=== PATIENT | male | born 1955 | race Caucasian/White ===

== ENCOUNTER 2023-04-13 17:26 | Emergency (ER) | payer OTHER, SELFPAY ==
[2023-04-13 17:29] VITALS: BP 169/91
--- NOTE | 2023-04-13 17:45 | ED.GENMED ---
History of Present Illness
General
Chief Complaint: Head Injury
Source: patient and spouse
Exam Limitations: none
Time Seen by Provider: 04/13/23 17:34
Nursing documentation reviewed up to this point in time: agreed with
Travel History
Have you had any contact with someone who has COVID-19?: No
Do you have any symptoms of coronavirus? Fever > 100 degrees, chills, cough, shortness of breath, sore throat, loss of taste or smell, muscle aches, or headache?: No
History of Present Illness
History of Present Illness:
67-year-old male with a past medical history as documented who presents to the emergency department after a fall. Patient reports that he was walking outside to get the mail when he was returning to the house he caught his foot on the driveway and
fell forward onto his face. He says he did not pass out. Sustained laceration to the bridge of the nose and has had pain and swelling in that area since the fall. He also says that he struck his right hand on the ground and has some pain at the
base of his right thumb. He denies any other serious injuries. He denies any neck pain, back pain, chest pain abdominal pain. No pain in his lower extremities and has been able to bear weight and ambulate since the fall. He denies any nausea or
vomiting. He is on aspirin but no other blood thinners. He says his tetanus shot is up-to-date.
Past History
Past History
ED Past Medical History: CAD, COPD, GERD, HTN, Hypercholesterolemia, NIDDM, [place], Seizures and Other (HIV, Parkinson's)
ED Past Surgical History: Appendectomy, Brain (Deep brain stimulator) and Cardiac (PTCA with stent)
Social History
Tobacco: Vaping
Alcohol: None
Drug: None
Personal:
Living: with family
Employment: Retired
Family History
Family History: CAD (brother in 50s)
Review of Systems
Review of Systems
All Other Systems: ROS reviewed and negative except as documented in HPI and ROS
EENT: Reports other (Nose pain and swelling); Denies mouth pain
Respiratory: Denies trouble breathing
Cardiac: Denies chest pain
ABD/GI: Denies abdominal pain, nausea or vomiting
: Denies flank pain
Musculoskeletal: Denies neck pain or back pain
Skin: Reports other (Laceration bridge of the nose)
Neurological: Reports headache (Frontal headache/facial pain); Denies dizzy, weakness or numbness
Phy Exam
Physical Exam
Physical Exam:
General: Awake, alert, not in acute distress
Head: Normocephalic, patient has minor abrasion to the middle of his forehead; he has laceration to the bridge of the nose approximately 1.5 cm vertical with some swelling to the bridge of the nose
Nose: No septal hematoma; laceration and swelling to the bridge of the nose as above
Eyes: Conjunctiva normal
Throat: Airway intact, handling secretions
Neck: Trachea midline, no tenderness in the cervical spine
Back: No signs of trauma to the back or flank and no tenderness in the thoracic or lumbar spine, no posterior rib tenderness
Lungs: Clear to auscultation bilaterally, no wheezing, rales, rhonchi
Heart: Regular rate and rhythm, no murmurs, gallops, or rubs; no chest wall tender
Abd: Soft, non distended, nontender
Neuro: Patient has intention tremor, shuffling gait; no focal weakness or numbness noted in the extremities
Skin: Laceration and abrasions as above; he also is a minor abrasion to the thenar eminence of the right hand
Extremities: Patient has minor abrasion to the right thenar eminence; he has some tenderness over the thenar eminence but no significant pain with manipulation of the thumb through full active range of motion; he is able to make a fist and has good
range of motion on apposition of the thumb; he has no tenderness of the right wrist, elbow, shoulder; rest of extremities are atraumatic and he moves them all through full comfortable range of motion; his extremities are warm and well-perfused
Scores
Heart Failure Risk
Heart Failure Risk Score: Not Applicable
Heart Score for Chest Pain Patients
STEMI patient?: Not applicable
Withdrawal Assessment of Alcohol
Withdrawal Assessment Completed?: Not applicable
Course
Orders/Labs/Results
Orders:
Orders
04/13/23 17:44
CT Cervical Spine W/o Iv Contr Urgent
Comment:
Reason For Exam: fall with frontal head trauma
CT Facial Bones W/o Iv Contras Urgent
Comment:
Reason For Exam: fall with frontal head trauma
CT Head W/o Iv Contrast Urgent
Comment:
Reason For Exam: fall with frontal head trauma
Acetaminophen [Tylenol] 650 mg PO NOW STA
CR Hand - Right Min 3 Views Urgent
Comment:
Reason For Exam: pain 1st MCP joint s/p fall
Vital Signs
Initial and Last Documented VS:
Initial Vital Signs
Temp Pulse Resp BP Pulse Ox
36.4 C 68 16 169/91 98
04/13/23 17:29 04/13/23 17:29 04/13/23 17:29 04/13/23 17:29 04/13/23 17:29
Last Documented Vital Signs
Temp Pulse Resp BP Pulse Ox
36.4 C 68 16 169/91 98
04/13/23 17:29 04/13/23 17:29 04/13/23 17:29 04/13/23 17:29 04/13/23 17:29
Procedures
Laceration Closure
Nose:
Status of Wound: clean
Size of Wound in cm: 1.5
Description of Wound Edges: sharp
Preparation: cleaned with saline
Anesthesia: 1% Lidocaine
Revision/Debridement: routine- no revision
Type of Closure: single layer closure
Skin Closure Material: 6-0 nylon
Number of sutures: 5
MDM/Problems Addressed
Differential Diagnosis Includes:
Must rule out intracranial hemorrhage, cervical spine injury although low suspicion clinically; concern for nasal fracture
MDM/Problems Addressed:
67-year-old male with history as above notable for Parkinson's disease presents after mechanical fall in his driveway onto his face. He injured his nose primarily also has some very mild pain at the base of the right thumb. He is hypertensive but
has otherwise normal vitals. As above. Check CT head and cervical spine, CT of the facial bones. Will check x-ray of the right hand. Patient says his tetanus is up-to-date. Will need to irrigate and repair laceration of the nose. Will give
some Tylenol for his nasal pain/headache. Reassess after the above.
CT head and cervical spine negative for any acute pathology. CT of the facial bones shows nasal fracture. X-ray of the hand reviewed by me no acute pathology. Irrigated and repaired laceration as documented procedure note. Will start on
prophylactic antibiotic given nasal fracture and laceration. Will have him follow-up with his primary doctor as an outpatient. He feels comfortable with this. Spoke about return precautions all questions answered.
Chronic conditions affecting care:
Parkinson's leading to frequent falls
Acute Exacerbation and/or Progression of Chronic Illness:
Acutely hypertensive�no signs or symptoms of hypertensive emergency no indication for emergent antihypertensive therapy at present
Acute Exacerbation and/or Progression of Chronic Illness: HTN
*Radiology
Radiology exam reviewed: preliminary read by ED provider and radiology read reviewed
*Pulse Oximetry
Patient hypoxic: no
*Critical Care Note
Total Time (30-74mins, 75-104mins- exclusive of procedures): Not Applicable
Data Reviewed
Source: patient and spouse
ED Attending Note
-
Portions of this chart may have been created with voice recognition software.� Occasional wrong word or��sound alike� substitutions may have occurred due to the inherent limitations of voice recognition software.
Discharge Plan
Departure
Patient Disposition: Home (Routine Discharge)
Date of Disposition: 04/13/23
Time of Disposition: 18:52
Patient with high blood pressure during this ER visit?: Yes
Discharge Problem:
Laceration of nose, Fracture, nasal
Instructions: Laceration Repair With Stitches (DC), Nose Fracture (DC)
Prescriptions:
New
clindamycin HCl 150 mg capsule
450 mg PO TID 5 Days Qty: 45 0RF
No Action
metoprolol succinate 100 MG tablet extended release 24 hr
100 mg PO DAILY
aspirin 81 MG tablet,delayed release (DR/EC)
81 mg PO HS
entacapone 200 MG tablet
200 mg PO BID
esomeprazole magnesium [Nexium] 40 MG capsule,delayed release(DR/EC)
40 mg PO DAILY
carbidopa-levodopa 1 TABLET tablet
1 tab PO TID
rosuvastatin [Crestor] 40 MG tablet
40 mg PO HS
pregabalin 100 MG capsule
200 mg PO BID
tamsulosin 0.4 MG capsule
0.4 mg PO HS
canagliflozin-metformin [Invokamet] 1 EACH tablet
1 ea PO DAILY
rxxfhfx-aqm-vecbh-tenof alafen [Genvoya] 1 TABLET tablet
1 ea PO DAILY
losartan 50 MG tablet
50 mg PO DAILY
potassium chloride 10 MEQ capsule, extended release
10 meq PO DAILY
chlorthalidone 25 MG tablet
25 mg PO DAILY
escitalopram oxalate 10 MG tablet
10 mg PO DAILY
hydrochlorothiazide 12.5 MG tablet
12.5 mg PO DAILY
multivitamin with folic acid [Tab-A-Lyly] 1 TABLET tablet
1 tab PO DAILY
nicotine 14 MG patch 24 hour
14 mg transdermal DAILY Qty: 30 0RF
Referrals:
Oanh Askew CRNP [Family Provider] - Follow up in 5-7 days
Activity Restrictions/Additional Instructions:
You must have your stitches removed in 5-7 days. You can either follow-up with your primary care physician, return here to the emergency room, or go to urgent care to have your stitches removed.
Thank you for visiting the Emergency Department at [facility].
1. Please schedule a follow up appointment as directed. Call first thing tomorrow morning to make an appointment.
2. If indicated, please take your medications as instructed and indicated on discharge paperwork.
3. If any of your symptoms do not improve, or persist, or become more severe within 6-12 hours, please return to the emergency department for further care.
4. Please return to the emergency department if you develop a headache, neck pain/stiffness, fever greater than 100.4F, chest pain, shortness of breath, persistent nausea, vomiting, slurred speech, difficulty walking, numbness/tingling, weakness,
signs of infection or any other symptoms that are worrisome to you.
Please call [phone] if you have any questions.
Interventions
Interventions:
*Risk Screen - Suicide Last Done: 04/13/23 17:29
*General Assessment Last Done: 04/13/23 17:29
*Neglect/Abuse Screening Last Done: 04/13/23 17:29
ED- Fall Risk Assessment Last Done: 04/13/23 18:04
*Nursing Disposition Last Done: 04/13/23 18:57
ED- Neurological Assessment Last Done: 04/13/23 18:04
ED-Skin Assessment Last Done: 04/13/23 18:04
Discharge Date and Time
Discharge Date/Time: 04/13/23 18:58
[2023-04-13] MEDS: TYLENOL 650 MG PO (17:57)
== END 2023-04-13 18:58 | disposition home or self-care (01) ==
LOC: EMR 17:26
PROVIDERS: EMERGENCY PHYSICIAN Emergency Medicine; FAMILY PHYSICIAN Nurse Practitioner Family
DX: S01.21XA Laceration without foreign body of nose, initial encounter (principal); S02.2XXA Fracture of nasal bones, initial encounter for closed fracture; W19.XXXA Unspecified fall, initial encounter; Y93.01 Activity, walking, marching and hiking; I25.10 Atherosclerotic heart disease of native coronary artery without angina pectoris; J44.9 Chronic obstructive pulmonary disease, unspecified; K21.9 Gastro-esophageal reflux disease without esophagitis; I10 Essential (primary) hypertension; E78.00 Pure hypercholesterolemia, unspecified; E11.9 Type 2 diabetes mellitus without complications; I25.2 Old myocardial infarction; G20.A1 Parkinson's disease without dyskinesia, without mention of fluctuations; G40.909 Epilepsy, unspecified, not intractable, without status epilepticus; Z21 Asymptomatic human immunodeficiency virus [HIV] infection status; F17.290 Nicotine dependence, other tobacco product, uncomplicated; Z79.82 Long term (current) use of aspirin; Z82.49 Family history of ischemic heart disease and other diseases of the circulatory system; Z90.49 Acquired absence of other specified parts of digestive tract; Z95.5 Presence of coronary angioplasty implant and graft
CPT/HCPCS: 99284; 12011; 70450; 70486; 72125; 73130

== ENCOUNTER → 2023-08-30 09:40 | Outpatient (REF) | payer OTHER, SELFPAY | LOC: RCS 09:40 | PROVIDERS: ATTENDING PHYSICIAN Internal Medicine Cardiovascular Disease; FAMILY PHYSICIAN Nurse Practitioner Family | DX: I25.10 Atherosclerotic heart disease of native coronary artery without angina pectoris (principal); I10 Essential (primary) hypertension | CPT/HCPCS: 93306 ==

== ENCOUNTER → 2023-09-09 08:50 | Outpatient (REF) | payer OTHER, SELFPAY | LOC: WDC 08:50 | PROVIDERS: ATTENDING PHYSICIAN Nurse Practitioner Family | DX: N64.4 Mastodynia (principal) | CPT/HCPCS: 76642; 77062; 77066 ==

== ENCOUNTER → 2024-04-02 07:24 | Outpatient (REF) | payer OTHER, SELFPAY | LOC: HWRCS 07:24 | PROVIDERS: ATTENDING PHYSICIAN Internal Medicine Cardiovascular Disease; FAMILY PHYSICIAN Nurse Practitioner Family | DX: I25.10 Atherosclerotic heart disease of native coronary artery without angina pectoris (principal) | CPT/HCPCS: 78452; 93017; A9500; J2785 ==

== ENCOUNTER → 2024-05-12 08:44 | Outpatient (REF) | payer OTHER, SELFPAY | LOC: HWRAD 08:44 | PROVIDERS: ATTENDING PHYSICIAN Nurse Practitioner Family | DX: M25.562 Pain in left knee (principal) | CPT/HCPCS: 73564 ==

== ENCOUNTER → 2024-07-07 08:52 | Outpatient (REF) | payer OTHER, SELFPAY | LOC: WDC 08:52 | PROVIDERS: ATTENDING PHYSICIAN Physician Assistant | DX: R92.8 Other abnormal and inconclusive findings on diagnostic imaging of breast (principal) | CPT/HCPCS: 76642; 77061; 77065 ==

== ENCOUNTER → 2024-07-23 08:05 | Outpatient (REF) | payer OTHER, SELFPAY | LOC: HWRAD 08:05 | PROVIDERS: ATTENDING PHYSICIAN Internal Medicine Infectious Disease; FAMILY PHYSICIAN Nurse Practitioner Family | DX: B20 Human immunodeficiency virus [HIV] disease (principal); E11.9 Type 2 diabetes mellitus without complications; Z79.4 Long term (current) use of insulin; D69.6 Thrombocytopenia, unspecified; I10 Essential (primary) hypertension; E87.0 Hyperosmolality and hypernatremia | CPT/HCPCS: 76700 ==

== ENCOUNTER 2024-09-19 20:08 | Emergency (ER) | payer OTHER, SELFPAY ==
[2024-09-19 20:10] VITALS: BP 165/80
[2024-09-19 20:11] VITALS: BP 165/80
[2024-09-19 20:19] VITALS: BMI 28.9
[2024-09-19 20:22] LABS: Hematocrit 42.0 % (39.0-52.0); Hemoglobin 14.3 g/dL (13.0-18.0); Mean Corp Hgb Conc. 34.0 g/dL (33.0-37.0); Mean Corpuscular Volume 88.6 fL (80.0-94.0); Nucleated Red Blood Cells % 0 % (-); Platelet Count 136 10^3/uL (130-400); Red Cell Dist. Width 14.2 % (11.5-14.5)
[2024-09-19 20:37] LABS: ALT (SGPT) 15 U/L (0-50); AST (SGOT) 20 U/L (17-59); Albumin 4.1 g/dl (3.5-5.0); Alkaline Phosphatase 78 U/L (38-126); Blood Urea Nitrogen 17 mg/dl (9-20); Calcium 8.7 mg/dl (8.4-10.2); Carbon Dioxide 31 mmol/L (22-30); Chloride 107 mmol/L (98-107); Estimated Creatinine Clearance 82 ml/min; Glucose 162 mg/dl (70-99); Potassium 3.7 mmol/L (3.5-5.1); Sodium 142 mmol/L (135-145); Total Protein 6.8 g/dl (6.3-8.2); eGFR > 60.00
[2024-09-19 20:43] LABS: Troponin I < 0.012 ng/ml
--- NOTE | 2024-09-19 20:48 | ED.GENMED ---
History of Present Illness
General
Chief Complaint: Chest Pain
Source: patient
Exam Limitations: none
Time Seen by Provider: 09/19/24 20:21
Nursing documentation reviewed up to this point in time: agreed with
History of Present Illness
History of Present Illness:
69-year-old male with past medical history of Parkinson's previous seizures TBI in the past, asthma presenting to the emergency department today with concerns of midsternal chest pain described as pressure without significant radiation no associated
shortness of breath or diaphoresis, nausea. Took aspirin at home within a half an hour of onset now has complete resolution of chest pain. No recent illness.
Past History
Past History
ED Past Medical History: CAD, COPD, GERD, HTN, Hypercholesterolemia, NIDDM, [place], Seizures and Other (HIV, Parkinson's)
ED Past Surgical History: Appendectomy, Brain (Deep brain stimulator) and Cardiac (PTCA with stent)
Social History
Tobacco: Vaping
Alcohol: None
Drug: None
Personal:
Living: with family
Employment: Retired
Family History
Family History: CAD (brother in 50s)
Review of Systems
Review of Systems
Allergies reviewed?: Yes
All Other Systems: ROS reviewed and negative except as documented in HPI and ROS
Phy Exam
Physical Exam
Physical Exam:
GENERAL: Alert , in no apparent distress
EYE: pupils equal and reactive
NECK: Supple, no significant adenopathy.
ENT: o/p clr, mmm.
CARDIAC: Regular rate and rhythm .
LUNGS: Clear breath sounds bilaterally, no acute respiratory distress, no wheezes/rales/rhonchi
ABDOMEN: Soft, without focal tenderness, no r/g, no cvat
NEUROLOGICAL: Alert and oriented, no focal neuro deficits
SKIN: Warm and dry, skin intact.
MUSCULOSKELETAL: No edema, well perfused.
PSYCH: Normal and appropriate interaction.
Scores
Heart Score for Chest Pain Patients
STEMI patient?: No
History: Slightly or Non-Suspicious
ECG: Nonspecific Repolarization
Age: >/= 65 years
Risk Factors: >/= 3 Risk Factors or History of CAD
Troponin: </= Normal Limit
Heart Score for Chest Pain Patients: 5
Heart Score Risk: 20.3% MACE over next 6 weeks
Course
Orders/Labs/Results
Orders:
Orders
09/19/24 20:09
Electrocardiogram (*1) Urgent
Reason for Study: Chest Pain
Cardiac Monitoring- Treatment ONCE
EKG- Treatment ONCE
09/19/24 20:13
Complete Blood Count/With Diff Urgent
Comprehensive Metabolic Panel Urgent
Troponin I Urgent
09/19/24 20:28
CXR2 [CR Chest - 2 Views ] Urgent
Comment:
Reason For Exam: cp
09/19/24 20:42
Venous Doppler Lwr Ext Rt [US Periph Venous LOWER Ext RT] Urgent
Comment:
Reason For Exam: right leg swelling
09/19/24 23:15
Electrocardiogram (*1) Urgent
Reason for Study: Chest Pain
09/19/24 23:18
Troponin I Urgent
Abnormal Lab Results
09/19/24
20:13
WBC 4.7 L 10^3/uL
(4.8-10.8)
MPV 10.5 H fL
(7.4-10.4)
Monocytes % 9.9 H %
(1.7-9.3)
Carbon Dioxide 31 H mmol/L
(22-30)
Glucose 162 H mg/dl
(70-99)
09/19/24 20:13
09/19/24 20:13
Vital Signs
Initial and Last Documented VS:
Initial Vital Signs
BP
165/80
09/19/24 20:10
Last Documented Vital Signs
Temp Pulse Resp BP Pulse Ox
98.3 F 68 19 165/83 97
09/19/24 20:11 09/20/24 00:00 09/19/24 20:30 09/19/24 23:00 09/20/24 00:00
MDM/Problems Addressed
MDM/Problems Addressed:
69-year-old male presenting to the emergency department today with concerns of a midsternal chest pain at home while watching TV he took aspirin now full relief of symptoms. Occurred roughly 1 hour prior to assessment. Vital signs on arrival
showing slight hypertension otherwise vital signs are normal. Labs otherwise unremarkable. Patient asymptomatic throughout ER stay 2 negative troponins to normal EKG stable for close outpatient follow-up. Return precautions given.
*Pulse Oximetry
SaO2: 97
Oxygen Mode of Delivery: Room air
Patient hypoxic: no (97)
*Critical Care Note
Total Time (30-74mins, 75-104mins- exclusive of procedures): Not Applicable
ED Attending Note
-
Portions of this chart may have been created with voice recognition software.� Occasional wrong word or��sound alike� substitutions may have occurred due to the inherent limitations of voice recognition software.
Discharge Plan
Departure
Patient Disposition: Home (Routine Discharge)
Date of Disposition: 09/20/24
Time of Disposition: 00:05
Patient with high blood pressure during this ER visit?: No
Condition: Good
Covid-19: Not Applicable
Discharge Problem:
Chest pain
Instructions: Chest Pain DCA Follow Up
Prescriptions:
No Action
metoprolol succinate 100 MG tablet extended release 24 hr
100 mg PO DAILY
aspirin 81 MG tablet,delayed release (DR/EC)
81 mg PO HS
entacapone 200 MG tablet
200 mg PO BID
esomeprazole magnesium [Nexium] 40 MG capsule,delayed release(DR/EC)
40 mg PO DAILY
carbidopa-levodopa 1 TABLET tablet
1 tab PO TID
rosuvastatin [Crestor] 40 MG tablet
40 mg PO HS
pregabalin 100 MG capsule
200 mg PO BID
tamsulosin 0.4 MG capsule
0.4 mg PO HS
canagliflozin-metformin [Invokamet] 1 EACH tablet
1 ea PO DAILY
uzanhoi-vpt-aojhe-tenof alafen [Genvoya] 1 TABLET tablet
1 ea PO DAILY
losartan 50 MG tablet
50 mg PO DAILY
potassium chloride 10 MEQ capsule, extended release
10 meq PO DAILY
chlorthalidone 25 MG tablet
25 mg PO DAILY
escitalopram oxalate 10 MG tablet
10 mg PO DAILY
hydrochlorothiazide 12.5 MG tablet
12.5 mg PO DAILY
multivitamin with folic acid [Tab-A-Lyly] 1 TABLET tablet
1 tab PO DAILY
nicotine 14 MG patch 24 hour
14 mg transdermal DAILY Qty: 30 0RF
clindamycin HCl 150 mg capsule
450 mg PO TID 5 Days Qty: 45 0RF
Referrals:
Oanh Askew CRNP [Family Provider, Family Practice]
Activity Restrictions/Additional Instructions:
You came to the emergency department today with concerns of chest pain. Here you had a reassuring assessment. 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 Return for any worsening, new or concerning symptoms.
Interventions
Interventions:
*Risk Screen - Suicide Last Done: 09/19/24 20:16
*General Assessment Last Done: 09/19/24 20:16
*Neglect/Abuse Screening Last Done: 09/19/24 20:16
*ED- Fall Risk Assessment Last Done: 09/19/24 20:16
*ED COVID-19 Vaccine History Last Done: 09/19/24 20:16
ED- Cardiac Assessment Last Done: 09/19/24 20:24
Discharge Date and Time
Print Language: YI
[2024-09-19 21:19] VITALS: BP 157/67
[2024-09-19 22:41] VITALS: BP 155/83
[2024-09-19 23:00] VITALS: BP 165/83
[2024-09-19 23:46] LABS: Troponin I < 0.012 ng/ml
[2024-09-20 00:01] VITALS: BP 172/89
== END 2024-09-20 00:47 | disposition home or self-care (01) ==
LOC: EMR 20:08
PROVIDERS: Physician Assistant; EMERGENCY PHYSICIAN Emergency Medicine; FAMILY PHYSICIAN Nurse Practitioner Family
DX: R07.89 Other chest pain (principal); E11.9 Type 2 diabetes mellitus without complications; E78.00 Pure hypercholesterolemia, unspecified; I10 Essential (primary) hypertension; I25.10 Atherosclerotic heart disease of native coronary artery without angina pectoris; G20.A1 Parkinson's disease without dyskinesia, without mention of fluctuations; J44.89 Other specified chronic obstructive pulmonary disease; F17.290 Nicotine dependence, other tobacco product, uncomplicated; Z87.820 Personal history of traumatic brain injury; Z90.49 Acquired absence of other specified parts of digestive tract; Z95.5 Presence of coronary angioplasty implant and graft
CPT/HCPCS: 99285; 71046; 80053; 84484; 85025; 93005; 93971

== ENCOUNTER 2024-10-19 23:28 | Inpatient (IN) | payer OTHER, SELFPAY ==
[2024-10-19] VITALS (10 sets, daily range): BP systolic 78–118; BP diastolic 47–61; BMI 28.8
--- NOTE | 2024-10-19 18:06 | ED.GENMED ---
History of Present Illness
General
Chief Complaint: Breathing Problem
Source: patient
Exam Limitations: none
Time Seen by Provider: 10/19/24 17:53
Nursing documentation reviewed up to this point in time: agreed with
History of Present Illness
History of Present Illness:
Patient presents to ED secondary to sudden onset of chest pain along with shortness of breath, shortly prior to arrival. Per paramedics, patient was found to be in respite distress with initial hypoxia in 80s, improved with supplemental oxygen.
Denies back pain. Denies leg pain or swelling. Chest pain described as sharp, left-sided, without radiation, without any alleviating or exacerbating factors. Patient reports feeling lightheaded at onset of symptoms. Patient did not experience
any shortness of breath or chest pain earlier today. In fact, patient was able to see his neurologist in [place] for Parkinson disease. It is when he came back and lay down to take a nap, he felt a chill sensation. Patient was assisted to
outside by his spouse to warm up, when he experienced sudden onset of shortness of breath with chest pain.
Past History
Past History
ED Past Medical History: CAD, COPD, GERD, HTN, Hypercholesterolemia, NIDDM, [place], Seizures and Other (HIV, Parkinson's)
ED Past Surgical History: Appendectomy, Brain (Deep brain stimulator) and Cardiac (PTCA with stent)
Social History
Tobacco: Vaping
Alcohol: None
Drug: None
Personal:
Living: with family
Employment: Retired
Family History
Family History: CAD (brother in 50s)
Review of Systems
Review of Systems
Allergies reviewed?: Yes
All Other Systems: ROS reviewed and negative except as documented in HPI and ROS
Constitutional: Reports no symptoms
EENT: Reports no symptoms
Respiratory: Reports trouble breathing
Cardiac: Reports chest pain
ABD/GI: Reports no symptoms; Denies nausea or vomiting
: Reports bleeding
Musculoskeletal: Reports no symptoms
Skin: Reports no symptoms
Neurological: Reports no symptoms
Phy Exam
Physical Exam
Physical Exam:
Physical Exam
General: mild distress, not acutely ill. afebrile. weak appearing
Head: nc/at. eomi
Neck: supple. no meningeal signs
Heart: s1/s2 regular rate and rhythm
Lungs: no acute respiratory distress. diminished breath sounds bilaterally
Abdomen: normal bowel sounds. not tender.
Neuro: alert and oriented x 3. no focal neurological deficits
Skin: no rash
Psychiatric: well kept. interactive and cooperative
Extremities: no edema. no calf tenderness.
Scores
Heart Failure Risk
Heart Failure Risk Score: Not Applicable
Course
Orders/Labs/Results
Orders:
Orders
10/19/24 04:27
Urinalysis Reflex To Culture Urgent
Date Specimen was Collected: 10/19/24
Time Specimen was Collected: 18:19
Urine Microscopic Reflex Cult Urgent
Urine Culture Urgent
CATHERINE Source: U
Specimen Description:
Date Specimen was Collected: 10/19/24
Time Specimen was Collected: 18:19
10/19/24 18:00
CR Chest Portable - 1 View Urgent
Comment:
Reason For Exam: shortness of breath
Reason Study Needs to be Portable: Patient Unstable
10/19/24 18:02
EKG [Electrocardiogram (*1)] Urgent
Reason for Study: Bradycardia / Tachycardia
EKG- Treatment ONCE
10/19/24 18:04
Complete Blood Count/With Diff Urgent
Comprehensive Metabolic Panel Urgent
Glycohemoglobin (HgbA1c) Urgent
Lactic Acid Urgent
Magnesium Urgent
NT-proBNP Urgent
Troponin I Urgent
Comment: ADD ON
Blood Culture Urgent
CATHERINE Source: Blood/Venous
Specimen Description:
10/19/24 18:05
0.9% Sodium Chloride 250 ml [Nss] 250 ml IV BOLUS
10/19/24 18:07
Add On- LAB Urgent
Tests Added?: troponin
10/19/24 18:32
CT Chest PE Study Urgent
Comment:
Reason For Exam: sob w hypoxia
10/19/24 18:42
COVID-19 Antigen Urgent
Source: Nasal Swab
Blood Culture Urgent
CATHERINE Source: Blood/Venous
Specimen Description:
10/19/24 18:52
Add On- LAB Urgent
Tests Added?: Troponin
10/19/24 19:26
Add On- LAB Urgent
Tests Added?: Hemoglobin A1c
10/19/24 19:59
LevoFLOXacin 500 MG/100 ML [Levaquin] 500 mg in 100 ml IV NOW
10/19/24 22:12
Acetaminophen [Tylenol] 650 mg .ROUTE .STK-MED ONE
10/19/24 22:13
Acetaminophen [Tylenol] 650 mg PO NOW STA
10/19/24 23:07
Admit/Transfer Patient As Directed
Co-Sign Provider:
Level of Care: Inpatient admission
Assign to:: Telemetry
Physician / Group: aaron
Diagnosis: uti
Reason for Telemetry: Arrhythmia
Date to Stop Telemetry: 10/22/24
Time to Stop Telemetry: 11:00
Reason for Hospitalization: uti
Expected length of stay greater than two midnights?: Yes
ELOS- Estimated Length of Stay in days: 2
I certify the patient meets the requirements for IP care: Yes
Code Status As Directed
Resuscitation Status: Do not resuscitate
Reached after discussion with pt or family/Healthcare POA: Yes
DNR Bracelet Application ONCE
PRN Pain Medication Management As Directed
May give lesser potent ordered pain med per pt: Yes
preference::
Protocol:: Medication orders for pain may be administered in a
manner that supports deferring to patient preference
when the pt is:
- Requesting an ordered lesser potent pain medication.
Least to most potent pain medications are defined
as: acetaminophen < NSAID < tramadol < opioids
(morphine, oxycodone, hydromorphone).
- Requesting a lesser dose of the same medication IF
ORDERED.
- Requesting a less intrusive route of administration
if both routes are prescribed by the provider (PO <
IV).
10/20/24 00:00
CefTRIAXone [Rocephin] 1,000 mg IV Q24H
10/20/24 00:10
Dextrose 50%-Water [Dextrose 50% Syringe] 12.5 grams IV [id number] PRN
Glucagon [GlucaGen] 1 mg IM PRN PRN
10/20/24 00:10
Activity As Directed
Activity Level: As Tolerated
Bedside Glucose Monitoring As Directed
Frequency: AC&HS
Additional Instructions:: Change to q6h if pt on TPN, tube feeding or not eating
Bladder Scan As Directed
Follow Bladder Retention/Intermittent Cath Algorithm?: Yes
PRN if no void in __ hours: 6
Frequency: Per Retention Algorithm
If Bladder Scan Result >: 400
then:: Straight cath
Straight Cath As Directed
Frequency: Per Retention Algorithm
Patient may straight cath themselves: Yes
Additional Instructions: straight cath as needed per acute urinary retention algorithm for 24 hrs
Additional Instructions: for bladder scan greater than 400 mL
Vital Signs As Directed
Frequency: Per unit guidelines
DX Deep Vein Thrombosis Video Routine
10/20/24 01:04
Troponin I Q6H
10/20/24 05:34
Complete Blood Count/With Diff IN AM
Comprehensive Metabolic Panel IN AM
10/20/24 07:30
Insulin Aspart Corrective Low [Novolog Flexpen-Low Resistance] See Protocol SC AC
10/20/24 08:00
Aspirin Low Dose EC [Aspir Low (Enteric Coated)] 81 mg PO DAILY
Carbidopa/Levodopa [Sinemet 25-250] 2 tablet PO TID
Escitalopram Oxalate [Lexapro] 20 mg PO DAILY
Ezetimibe [Zetia] 10 mg PO DAILY
Heparin 5,000 units SC Q12
Metoprolol Xl [Toprol Xl] 100 mg PO DAILY
Multivitamin [Theragran] 1 tablet PO DAILY
Pantoprazole [Protonix] 40 mg PO DAILY
Pregabalin [Lyrica] 200 mg PO TID
jbtqjdg-zjm-mzsds-tenof alafen [Genvoya] 1 tablet PO DAILY
10/20/24 12:15
Troponin I Q6H
10/20/24 Dinner
Cholesterol Lowering
At Your Request: Full Participation
Cholesterol Lowering: Sodium, 2 Gram
10/20/24 18:00
Potassium Chloride [KCl] 20 meq PO QPM
10/20/24 18:10
Troponin I Q6H
10/20/24 22:00
Rosuvastatin Calcium [Crestor] 40 mg PO HS
Tamsulosin [Flomax] 0.4 mg PO HS
10/22/24 11:00
DC Protocol for Telemetry ONCE
Abnormal Lab Results
10/19/24 10/19/24
04:27 18:04
RDW 14.8 H %
(11.5-14.5)
Plt Count 116 L 10^3/uL
(130-400)
MPV 11.2 H fL
(7.4-10.4)
Absolute Lymphs (auto) 0.5 L 10^3/uL
(1.2-3.4)
Neutrophils % 87.6 H %
(42.2-75.2)
Lymphocytes % 8.5 L %
(20.5-51.1)
BUN 21 H mg/dl
(9-20)
Glucose 229 H mg/dl
(70-99)
Hemoglobin A1c 7.7 H %
(4.0-5.6)
Ur Occult Blood Reflex 4+ A
(Negative)
Urine Nitrite (Reflex) Positive A
(Negative)
Leukocyte Esterase Rfl 2+ A
(Negative)
Urine RBC >100 A /HPF
(0-2)
Urine WBC (Reflex) >100 A /HPF
(0-5)
Urine Bacteria (Reflex) Many A
(Negative)
Urine Glucose 4+ A
(Negative)
Urine Albumin (Reflex) 4+ A
(Neg - Trace)
10/19/24 18:04
10/19/24 18:04
Vital Signs
Initial and Last Documented VS:
Initial Vital Signs
Temp Pulse Resp BP Pulse Ox
99.7 F 108 16 82/51 95
10/19/24 17:42 10/19/24 17:42 10/19/24 17:42 10/19/24 17:42 10/19/24 17:42
Last Documented Vital Signs
Temp Pulse Resp BP Pulse Ox
97.9 F 74 16 141/73 95
10/20/24 11:31 10/20/24 11:31 10/20/24 11:31 10/20/24 11:31 10/20/24 08:16
MDM/Problems Addressed
MDM/Problems Addressed:
Prehospital, as well as initial pulse ox upon arrival to ED, initially supported with supplemental oxygen, resolved spontaneously over time, raising possibility of infectious etiology causing transient hypoxia with patient's discomfort.
CT PE study ordered.
Patient will be admitted for further evaluation treatment, on IV antibiotics.
*Pulse Oximetry
SaO2: 96
Nasal Cannula flow liters per minute: 6
Patient hypoxic: yes
*EKG
Interpreted by ED Provider?: Yes
EKG Intrepretation Date: 10/19/24
Heart Rate: 104
Rate: tachycardiac
Rhythm: sinus
[place]: left axis deviation
Interval: normal interval
*Critical Care Note
Total Time (30-74mins, 75-104mins- exclusive of procedures): Not Applicable
ED Attending Note
-
Portions of this chart may have been created with voice recognition software.� Occasional wrong word or��sound alike� substitutions may have occurred due to the inherent limitations of voice recognition software.
Discharge Plan
Departure
Patient Disposition: Admit
Date of Disposition: 10/19/24
Time of Disposition: 20:41
Presentation/result/management discussed w/ accepting MD/DO: Hospitalist
Discharge Problem:
Acute UTI
Interventions
Interventions:
*Risk Screen - Suicide Last Done: 10/19/24 17:59
*General Assessment Last Done: 10/19/24 17:59
*Neglect/Abuse Screening Last Done: 10/19/24 17:59
*ED- Fall Risk Assessment Last Done: 10/19/24 17:59
*ED COVID-19 Vaccine History Last Done: 10/19/24 17:59
ED- Cardiac Assessment Last Done: 10/20/24 08:16
ED- Pulmonary Assessment Last Done: 10/20/24 08:16
[2024-10-19 18:16] LABS: Hematocrit 45.0 % (39.0-52.0); Hemoglobin 15.0 g/dL (13.0-18.0); Mean Corp Hgb Conc. 33.3 g/dL (33.0-37.0); Mean Corpuscular Volume 90.0 fL (80.0-94.0); Nucleated Red Blood Cells % 0 % (-); Platelet Count 116 10^3/uL (130-400); Red Cell Dist. Width 14.8 % (11.5-14.5)
[2024-10-19] MEDS: NSS 250 IV (18:24)
[2024-10-19 18:39] LABS: ALT (SGPT) 10 U/L (0-50); AST (SGOT) 38 U/L (17-59); Albumin 4.3 g/dl (3.5-5.0); Alkaline Phosphatase 109 U/L (38-126); Blood Urea Nitrogen 21 mg/dl (9-20); Calcium 8.5 mg/dl (8.4-10.2); Carbon Dioxide 28 mmol/L (22-30); Chloride 107 mmol/L (98-107); Estimated Creatinine Clearance 66 ml/min; Glucose 229 mg/dl (70-99); Magnesium 1.9 mg/dl (1.6-2.3); Potassium 3.8 mmol/L (3.5-5.1); Sodium 143 mmol/L (135-145); Total Protein 6.8 g/dl (6.3-8.2); eGFR > 60.00
[2024-10-19 18:50] LABS: Urine Character Cloudy (Clear)
[2024-10-19 19:04] LABS: COVID-19 Antigen Negative (Negative)
[2024-10-19 19:36] LABS: Urine Red Blood Cell >100 /HPF (0-2); Urine Squamous Cell 0-2 /LPF (Few); Urine White Cell >100 /HPF (0-5)
[2024-10-19 20:02] LABS: Troponin I < 0.012 ng/ml
[2024-10-19] MEDS: LEVAQUIN 100 IV (21:27)
[2024-10-19] MEDS: TYLENOL 650 MG PO (22:14)
--- NOTE | 2024-10-19 23:15 | HPS.HSE ---
Family Physician
-
Family Physician: GHASSAN Coates
Chief Complaint
-
chest pain
History of Present Illness
69-year-old male past medical history of HIV, diabetes, hyperlipidemia, hypertension, anxiety, parkinsonism, seizure disorder, COPD, GERD, BPH and self catheterizes, presenting with sudden onset of chest pain and shortness of breath that started
abruptly shortly prior to arrival. Per paramedics he was found to be in respiratory distress with hypoxia in the 80s which improved with supplemental oxygen. Denies back pain. Chest pain described as pressure without radiation no alleviating
exacerbating factors. Patient did feel lightheaded at the onset of symptoms.
Patient states that he gained 2 to 3 pounds over the past few days. Over the past several months his shoe sizes increased from 9-12 due to increased lower extremity edema.
Patient was feeling fine earlier today. He was able to see his neurologist in [place] for Parkinson's disease. He felt chills when he came back home.
He noticed blood in the urine with burning during self-catheterization today.
He follows with infectious disease doctor in [place] and states that his CD4 counts have been normal without any issue. He takes his HIV medication every day.
He does vape. He denies alcohol. He denies drugs.
Medical History
Past Medical History
Past Medical History: Reports Other (HIV, diabetes, hyperlipidemia, hypertension, anxiety, parkinsonism, seizure disorder, COPD, GERD, BPH and self catheterizes)
Past Surgical History: Reports Other ( Appendectomy, Brain (Deep brain stimulator) and Cardiac (PTCA with stent))
Social History
Tobacco: Vaping
Alcohol: None
Drug: None
Family History
Family History: Not pertinent
Allergies / Home Medications
Allergies reflects when Allergies were last updated in [employer].
Home Medications with original date entered in [employer]
Allergy/Medication List:
Allergies
Allergy/AdvReac Type Severity Reaction Status Date / Time
Penicillins Allergy Rash Verified 10/19/24 17:48
vancomycin Allergy Angel Verified 10/19/24 17:48
Tae
Syndrome
(rash)
Home Medications
aspirin 81 mg tablet,delayed release 81 mg PO DAILY 09/23/17
esomeprazole magnesium 40 mg capsule,delayed release (Nexium) 40 mg PO DAILY 09/23/17
metoprolol succinate 100 mg tablet,extended release 24 hr 100 mg PO DAILY 09/23/17
rosuvastatin 40 mg tablet (Crestor) 40 mg PO HS 09/23/17
tamsulosin 0.4 mg capsule 0.4 mg PO HS 05/10/21
multivitamin with folic acid 400 mcg tablet (Tab-A-Lyly) 1 tab PO DAILY 05/29/21
carbidopa 25 mg-levodopa 250 mg tablet 2 tab PO TID 10/19/24
elviteg 150 mg-cob 150 mg-emtricit 200 mg-tenofo alafenam 10 mg tablet (Genvoya) 1 tab PO DAILY 10/19/24
empagliflozin 25 mg tablet (Jardiance) 25 mg PO DAILY 10/19/24
escitalopram oxalate 20 mg tablet (Lexapro) 20 mg PO DAILY 10/19/24
ezetimibe 10 mg tablet (Zetia) 10 mg PO DAILY 10/19/24
furosemide 20 mg tablet (Lasix) 20 mg PO DAILY 10/19/24
potassium chloride 20 mEq tablet,extended release 20 meq PO QPM 10/19/24
pregabalin 200 mg capsule (Lyrica) 200 mg PO TID 10/19/24
sitagliptin phosphate 50 mg tablet (Januvia) 50 mg PO QPM 10/19/24
Review of Systems
-
History Source: Patient
A 12 point ROS was completed and negative except as noted: Yes
Constitutional: Reports No Symptoms
EENT: Reports No Symptoms
Respiratory: Reports See HPI
Cardiac: Reports See HPI
Abdomen/GI: Reports No Symptoms
: Reports No Symptoms
Musculoskeletal: Reports No Symptoms
Skin: Reports No Symptoms
Neurological: Reports No Symptoms
Endocrine: Reports No Symptoms
Hematologic/Lymphatic: Reports No Symptoms
Psych: Reports No Symptoms
Physical Exam
Vital Signs
Vital Signs
Temp Pulse Resp BP Pulse Ox
99.1 F 98 20 112/59 95
10/19/24 17:59 10/19/24 20:15 10/19/24 20:15 10/19/24 20:00 10/19/24 20:15
Physical Exam
General: Well Developed, Well Nourished and No Apparent Distress
HEENT: NormoCephalic, Moist mucous membranes and Atraumatic
Respiratory: Clear
Cardiac: S1/S2 and Regular Rhythm; No Murmur or Rub
GI: Soft, Non Tender, Non Distended and Normal Bowel Sounds; No Organomegaly
Rectal: Deferred by Provider
Musculoskeletal: No Clubbing, No Cyanosis and No Edema
Skin: No Rash
Neuro: Nonfocal/grossly intact
Laboratory Results
-
10/19/24 18:04
10/19/24 18:04
Laboratory Results
Lactic Acid 2.0 mmol/L (0.7-2.0) 10/19/24 18:04
Total Bilirubin 0.7 mg/dl (0.2-1.3) 10/19/24 18:04
AST 38 U/L (17-59) 10/19/24 18:04
ALT 10 U/L (0-50) 10/19/24 18:04
Alkaline Phosphatase 109 U/L (38-126) 10/19/24 18:04
Troponin I < 0.012 ng/ml 10/19/24 18:04
Data Reviewed
-
Lab Data: Labs Reviewed by me
Old Records: Reviewed
Impression/Plan
-
IMPRESSION:
PLAN:
# Possible transient hypoxemia possibly secondary to decreased perfusion from hypotension
-Patient initially hypotensive 83 systolic and tachycardic and received IV fluids, hypotension now resolved
-Patient was she was placed on 6 L of oxygen, currently weaned down to 2 L oxygen saturating 94%
- CT chest shows cardiomegaly, no pericardial effusion, subsegmental atelectasis in the bilateral lung bases, no focal consolidation pleural effusion or pneumothorax, no evidence of pulmonary embolism,
- No clear etiology to explain persistent hypoxemia as cardiac BNP only 200, CT PE negative
-Lungs without any wheeze, not consistent with COPD exacerbation or CHF
- Try to wean off oxygen further
# Chest pain
-Now resolved
- EKG shows sinus tachycardia, left axis deviation,
- Troponin negative, trend troponins
# Urinary tract infection secondary to self catheterizing
- Blood cultures pending, urine culture
- Ceftriaxone
# Hyperglycemia secondary to infect
Type 2 diabetes
- Hold Jardiance
- Hold sitagliptin
- Insulin sliding scale
History of HIV
- Continue Genvoya
Hyperlipidemia
- Continue Zetia, Crestor
CAD
- Continue aspirin
Chronic HFrEF
- Hold Lasix
Essential hypertension
- Continue metoprolol
Anxiety
- Continue Lexapro
Parkinsonism
- Continue carbidopa levodopa
Seizure disorder
- Continue pregabalin
COPD
GERD
- Continue esomeprazole
BPH and self catheterizes
- continue tamsulosin
Vaping history
DNR/DNI
DVT prophylaxis�heparin
Regular diet
[2024-10-20] VITALS (13 sets, daily range): BP systolic 106–164; BP diastolic 58–91
[2024-10-20] MEDS: ROCEPHIN 1000 MG IV ×2 (01:34→23:15)
[2024-10-20] MEDS: STERILE WATER FOR INJECTION 10 ML IV ×2 (01:34→23:15)
[2024-10-20 02:02] LABS: Troponin I 0.056 ng/ml
[2024-10-20 06:03] LABS: Hematocrit 42.8 % (39.0-52.0); Hemoglobin 14.2 g/dL (13.0-18.0); Mean Corp Hgb Conc. 33.2 g/dL (33.0-37.0); Mean Corpuscular Volume 89.9 fL (80.0-94.0); Nucleated Red Blood Cells % 0 % (-); Platelet Count 109 10^3/uL (130-400); Red Cell Dist. Width 14.8 % (11.5-14.5)
[2024-10-20 06:18] LABS: ALT (SGPT) 19 U/L (0-50); AST (SGOT) 32 U/L (17-59); Albumin 3.8 g/dl (3.5-5.0); Alkaline Phosphatase 96 U/L (38-126); Blood Urea Nitrogen 19 mg/dl (9-20); Calcium 8.2 mg/dl (8.4-10.2); Carbon Dioxide 29 mmol/L (22-30); Chloride 108 mmol/L (98-107); Estimated Creatinine Clearance 73 ml/min; Glucose 131 mg/dl (70-99); Potassium 3.9 mmol/L (3.5-5.1); Sodium 143 mmol/L (135-145); Total Protein 6.4 g/dl (6.3-8.2); eGFR > 60.00
[2024-10-20 08:05] LABS: Troponin I 0.041 ng/ml
[2024-10-20] MEDS: ZETIA 10 MG PO (08:06)
[2024-10-20] MEDS: PROTONIX 40 MG PO (08:06)
[2024-10-20] MEDS: LEXAPRO 20 MG PO (08:06)
[2024-10-20] MEDS: ASPIR LOW (ENTERIC COATED) 81 MG PO (08:06)
[2024-10-20] MEDS: THERAGRAN 1 TABLET PO (08:07)
[2024-10-20] MEDS: TOPROL XL 100 MG PO (08:07)
[2024-10-20] MEDS: LYRICA 200 MG PO ×3 (08:08→21:07)
[2024-10-20] MEDS: HEPARIN 5000 UNITS SC ×2 (08:09→21:04)
[2024-10-20] MEDS: SINEMET 25-250 2 TABLET PO ×3 (08:11→21:14)
[2024-10-20 08:12] LABS: Glycohemoglobin (HgbA1c) 7.7 % (4.0-5.6)
--- NOTE | 2024-10-20 08:15 | EDRN ---
Providers notified of critical value troponin
[2024-10-20 09:11] LABS: Glucose - Point of Care 153 mg/dl (70-99)
[2024-10-20] MEDS: NOVOLOG FLEXPEN-LOW RESISTANCE 1 UNITS SC (09:13)
[2024-10-20 13:01] LABS: Troponin I 0.023 ng/ml
[2024-10-20 13:03] LABS: Glucose - Point of Care 148 mg/dl (70-99)
[2024-10-20] MEDS: NOVOLOG FLEXPEN-LOW RESISTANCE SC ×2 (13:14→16:26)
--- NOTE | 2024-10-20 14:57 | W.PN.HOSP.TC ---
Addendum entered and electronically signed by Nisreen Griffiths MD 10/20/24 15:46:
I saw and evaluated the patient independently. I reviewed the resident�s note and agree with findings and plan as documented by Dr. Momin.
GENERAL: well developed, well nourished, male in no apparent distress
HEENT: NC/AT
HEART: regular rate and rhythm, +S1, +S2
LUNGS : rales at bases bilaterally
ABDOM: soft, protuberant, nontender, nondistended, + bowel sounds
EXT: no cyanosis, clubbing, or edema
NEUROLOGIC: tremors of left hand c/w Parkinson's
Transient hypoxemia/Chest pain/Acute on Chronic HFpEF exacerbation--apprec cards--cont diuresis--follow weights--check ECHO--IV lasix, daily weights, I/Os
Urinary tract infection/BPH--await cultures--cont ceftriaxone, flomax--cont self catheterization
Type 2 diabetes--Patient was hyperglycemic on admission, likely secondary to infection--Insulin sliding scale in the hospital--restart oral meds--cont SSI
HIV--Continue Genvoya once daily
Hyperlipidemia--Continue Zetia 10 mg daily and Crestor 40 mg p.o. at bedtime
CAD--Continue aspirin 81 mg daily
Essential hypertension--Continue metoprolol succinate 100 mg p.o. daily
Anxiety--Continue Lexapro 20 mg daily
Parkinson's--Continue carbidopa levodopa 2 tabs p.o. 3 times daily
Seizure disorder--Continue pregabalin 200 mg p.o. 3 times daily
GERD--Continue esomeprazole magnesium 40 mg p.o. daily
DVT proph--Heparin
CODE STATUS-- DNR/DNI
Original Note:
Today's Communication/Plan
-
Follow-up echo
Follow-up cardiology recs
Continue IV antibiotics for UTI
Assessment / Plan
Assessment / Plan
69-year-old male with PMH of HIV on Genvoya, diabetes, hyperlipidemia, hypertension, anxiety, parkinsonism, seizure disorder, GERD, BPH (self catheterizes), presented to the ED on 10/19/2024 with sudden onset of chest pain and shortness of breath
that started abruptly shortly prior to arrival.� Per paramedics, he was found to be in respiratory distress with hypoxia in the 80s which improved with supplemental oxygen. In the ED, UA was remarkable for RBC, WBC, leukocyte esterase, and
nitrites. He was started on IV ceftriaxone 1000 mg. He required about 6 L NC (does not use oxygen at home/baseline) and was diuresed with symptomatic improvement in his chest pain and shortness of breath. His oxygen was able to be weaned down to
0-[address] chest 10/19/2024�showed cardiomegaly, no pericardial effusion, subsegmental atelectasis in the bilateral lung bases, no focal consolidation pleural effusion or pneumothorax, no evidence of pulmonary embolism. CXR was unremarkable for
an acute cardiopulmonary process. BNP was 200 and tropes more<0.012, 0.056, 0.041, 0.023 since admission.
#Transient hypoxemia
#Chest pain, resolving
#Chronic HFpEF
Most likely ISO decreased perfusion from hypotension secondary to UTI given unremarkable cardiac workup thus far.
-Cardiology consulted, appreciate recs
-Follow-up echo 10/20/2024
-Hold home Lasix 20 mg daily, s/p IV diuresis
#Urinary tract infection
#BPH
Creatinine 0.9 (baseline 0.7), UA 10/19/2024 indicative of UTI, patient self catheterizes.
-Follow-up blood cultures and urine cultures
-Continue IV ceftriaxone 1000 mg
-Continue tamsulosin 0.4 mg p.o. at bedtime
#Type 2 diabetes
Patient was hyperglycemic on admission, likely secondary to infection.
-Insulin sliding scale in the hospital
-Hold sitagliptin and Jardiance
-Continue to monitor POCs
#HIV
-Continue Genvoya once daily
#Hyperlipidemia
-Continue Zetia 10 mg daily and Crestor 40 mg p.o. at bedtime
#CAD
-Continue aspirin 81 mg daily
#Essential hypertension
-Continue metoprolol succinate 100 mg p.o. daily
# Anxiety
-Continue Lexapro 20 mg daily
#Parkinsonian syndrome
-Continue carbidopa levodopa 2 tabs p.o. 3 times daily
#Seizure disorder
-Continue pregabalin 200 mg p.o. 3 times daily
#GERD
-Continue esomeprazole magnesium 40 mg p.o. daily
Diet: Low-cholesterol
DVT prophylaxis: Heparin
CODE STATUS: DNR/DNI
Anticipated Discharge: 24 - 48 hours (Pending cardiac workup and urine cultures)
Subjective/Interval History
-
Date of Service: October 20, 2024
-This morning, he is laying in bed on room air, asking when he can go home.
-He states that his symptoms are much improved from when he came in. He endorses continued burning with self-catheterization.
Objective Data
-
Labs:
Laboratory Results
10/20/24
05:34
WBC 7.9
Hgb 14.2
Hct 42.8
Plt Count 109 L
Sodium 143
Potassium 3.9
Chloride 108 H
Carbon Dioxide 29
BUN 19
Creatinine 0.9
Glucose 131 H
Calcium 8.2 L
Total Bilirubin 0.8
AST 32
ALT 19
Alkaline Phosphatase 96
Vital Signs:
Vital Signs
Temp Pulse Resp BP Pulse Ox
97.9 F 74 16 141/73 95
10/20/24 11:31 10/20/24 11:31 10/20/24 11:31 10/20/24 11:31 10/20/24 08:16
I&O
10/19/24 10/20/24 10/21/24
06:59 06:59 06:59
Output Total 675 / 675
Balance -675 / -675
Review of Systems
-
History Source: Patient
All other systems: Reviewed and negative
Constitutional: Reports Chills
Cardiac: Reports Chest Pain (Chest pressure, which is improving)
Abdomen/GI: Reports Bloated (He feels as if this is water weight)
Genitourinary: Reports Dysuria, Bleeding and UTI
Physical Exam
-
General: Well Developed, Well Nourished, No Apparent Distress, Comfortable and Other (Laying in bed)
HEENT: Normocephalic, Atraumatic and Moist Mucous Membranes
Respiratory: Rales (Greatest in the right lower lung base) and Non Labored Respirations
Cardiac: Regular Rhythm and S1/S2
GI: Nontender and Nondistended
Musculoskeletal: No Clubbing, No Cyanosis and No Edema
Skin: Warm and Dry
Neuro: AO x 3
Psych: Calm and Intact Judgement/Insight
--- NOTE | 2024-10-20 15:16 | CON.CAR ---
Addendum entered and electronically signed by Ryan Ibrahim DO 10/20/24 21:18:
I saw and examined the patient.
The Oral Surgery Technician's note was reviewed and I agree with the note.
Comment:
Plan:
He presented with an episode of transient chest pain and shortness of breath with hypoxia in the setting of hypotension felt to be secondary to UTI.
Remains cp free
Chest CT without evidence for PE
EKGs without acute ischemic changes
Troponin peaked at 0.05 and downtrending, suspected nonischemic myocardial injury and would cont med tx of this
Urgent echo performed and unchanged from prior echo
He already has outpt follow up very soon in our office Nov 10.
Resume lasix prior to d/c if able
Stable cv status
Please recall if needed
Original Note:
Consultation
Consultation Request
Date/Time Consultation Performed: 10/20/24
Requesting Provider: Dr. Griffiths
Performing Provider: Pauline Ivey PA-C for Dr. Ibrahim
Reason for Consultation: CP, SOB
Medical History
-
Chief Complaint: CP, SOB
History of Present Illness:
Patient is a 69-year-old male with past medical history of CAD status post remote LAD BMS, RCA PCI x 2 in 2014, HIV, type 2 diabetes, Parkinson's, history of orthostasis, HTN, HLD, BPH (self catheterizes) who presented to [facility] due to
complaints of chest pain and shortness of breath. He reports chest pain was central in location and more of a tightness or pressure without radiation. He was noted to be in respiratory distress per paramedics and noted to be hypoxic with pulse ox
in the 80s, improved with supplemental O2. Reports yesterday morning he had seen his neurologist who follows his Parkinson's disease. When he returned home, he noted chills. He reports some burning and hematuria with self catheterization
yesterday, and has noted some 'pain in my kidneys' over the last several days particularly with movement. No present CP, SOB. Last ischemic eval 03/2024 with fixed defect consistent with prior LAD territory infarct, EF preserved.
PMH:
CAD
s/p remote LAD BMS
s/p RCA PCI x2 2014
HIV
DM2
Parkinson's
History of orthostasis
HTN
HLD
GERD
Depression
BPH, self catheterizes
Vaping
Past Medical History
Past Medical History: Other (in HPI)
Social History
Tobacco: Vaping
Personal:
Living: With Family
Employment: Retired
Family History
Family History: Reviewed & Not Pertinent
Allergies / Home Medications
Allergy/AdvReac Type Severity Reaction Status Date / Time
Penicillins Allergy Rash Verified 10/19/24 17:48
vancomycin Allergy Angel Verified 10/19/24 17:48
Tae
Syndrome
(rash)
�Medication �Instructions �Recorded �Confirmed �Type
aspirin 81 mg tablet,delayed 81 mg PO DAILY 09/23/17 10/19/24 History
release
esomeprazole magnesium 40 mg 40 mg PO DAILY 09/23/17 10/19/24 History
capsule,delayed release (Nexium)
metoprolol succinate 100 mg 100 mg PO DAILY 09/23/17 10/19/24 History
tablet,extended release 24 hr
rosuvastatin 40 mg tablet (Crestor) 40 mg PO HS 09/23/17 10/19/24 History
tamsulosin 0.4 mg capsule 0.4 mg PO HS 05/10/21 10/19/24 History
multivitamin with folic acid 400 1 tab PO DAILY 05/29/21 10/19/24 History
mcg tablet (Tab-A-Lyly)
carbidopa 25 mg-levodopa 250 mg 2 tab PO TID 10/19/24 10/19/24 History
tablet
elviteg 150 mg-cob 150 mg-emtricit 1 tab PO DAILY 10/19/24 10/19/24 History
200 mg-tenofo alafenam 10 mg
tablet (Genvoya)
empagliflozin 25 mg tablet 25 mg PO DAILY 10/19/24 10/19/24 History
(Jardiance)
escitalopram oxalate 20 mg tablet 20 mg PO DAILY 10/19/24 10/19/24 History
(Lexapro)
ezetimibe 10 mg tablet (Zetia) 10 mg PO DAILY 10/19/24 10/19/24 History
furosemide 20 mg tablet (Lasix) 20 mg PO DAILY 10/19/24 10/19/24 History
potassium chloride 20 mEq 20 meq PO QPM 10/19/24 10/19/24 History
tablet,extended release
pregabalin 200 mg capsule (Lyrica) 200 mg PO TID 10/19/24 10/19/24 History
sitagliptin phosphate 50 mg tablet 50 mg PO QPM 10/19/24 10/19/24 History
(Januvia)
Review of Systems
-
History Source: Patient
All other systems: Negative unless noted
Physical Exam
Vital Signs
Temp Pulse Resp BP Pulse Ox
97.9 F 74 16 141/73 97
10/20/24 11:31 10/20/24 11:31 10/20/24 11:31 10/20/24 11:31 10/20/24 15:03
Lab Results
10/20/24 05:34
10/20/24 05:34
Troponin I 0.023 ng/ml D 10/20/24 12:15
Vor-F-Bebjhtjfzvr Pept 215 pg/ml 10/19/24 18:04
Physical Exam
General: No Apparent Distress, Comfortable and Other (on supp O2)
HEENT: Normocephalic, Anicteric and Moist Mucous Membranes
Respiratory: Wheezes (mild)
Cardiac: S1/S2 and Regular Rhythm
GI: Soft, Non Tender, Non Distended and Normal Bowel Sounds
Musculoskeletal: No Clubbing, No Cyanosis and Edema (trace of B/L LE)
Skin: Warm and Dry
Neuro: AO x 3
Impression / Plan
-
Primary [employer]: Dr. AMRIT Oleary
Assessment:
Presentation with transient CP/SOB
Hypotension
UTI
Elevated troponin, suspected nonischemic myocardial injury
CAD
s/p remote LAD BMS
s/p RCA PCI x2 2014
HIV
DM2
Parkinson's
History of orthostasis
HTN
HLD
GERD
Depression
BPH, self catheterizes
Vaping
ECHO 08/30/2023: EF 65 to 70%, mild concentric LVH, MAC, trace MR, mildly dilated RV with PASP 30 mmHg, small pericardial effusion versus pericardial fat over right atrial free wall
ECHO 10/20/2024: EF 60 to 65%, no regional wall motion abnormalities noted, no evidence of pericardial effusion, no significant change compared to prior
Plan:
- Patient presented with episode of transient chest pain and shortness of breath with hypoxia in the setting of hypotension felt to be secondary to UTI. He is presently chest pain-free
- Chest CT without evidence for PE
- EKGs without acute ischemic changes
- Troponin peaked at 0.05 and downtrending, suspected nonischemic myocardial injury in setting of above
- He does have known CAD with most recent stenting in 2014 to RCA. Most recent ischemic evaluation was in March of this year with normal EF and fixed defect consistent with LAD territory infarct noted
- Echo this admission with preserved EF and no regional wall motion abnormalities
- Continue medical therapy at this time with aspirin, Toprol, Crestor, Zetia.
- continue treatment of UTI per primary service
- BPs improving. currently holding po lasix 20mg daily. ideally would resume upon DC. follow volume status
- he is eager for DC
- OP cardiac follow up as arranged for 11/10/24
Data Reviewed
-
EKG: Tracing Personally Visualized and interpreted
CT Scan: Report Reviewed by me
Medical Tests (Nuc Med, Echo etc): Report Reviewed by me
Labs: Labs Reviewed by me
Old Records: Reviewed
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
--- NOTE | 2024-10-20 16:12 | CM ---
Patient seen at bedside with physicians in ED. Patient lives with in a one story home. Patient has a walker that he does not use and a cane. Patient is followed by Dr. Oleary and patient pharmacy is [facility] in [place]. CM will continue to
follow for discharge planning needs.
Plan; home with VN vs SNF; pending medical treatment plan
[2024-10-20 16:26] LABS: Glucose - Point of Care 120 mg/dl (70-99)
[2024-10-20] MEDS: KCL 20 MEQ PO (18:11)
[2024-10-20 21:09] LABS: Troponin I < 0.012 ng/ml
[2024-10-20] MEDS: FLOMAX 0.4 MG PO (21:10)
[2024-10-20] MEDS: CRESTOR 40 MG PO (21:10)
[2024-10-20 23:22] LABS: Glucose - Point of Care 126 mg/dl (70-99)
[2024-10-21 03:00] VITALS: BP 147/88
[2024-10-21 07:00] VITALS: BP 138/75
[2024-10-21] MEDS: ASPIR LOW (ENTERIC COATED) 81 MG PO (07:37)
[2024-10-21] MEDS: LYRICA 200 MG PO (07:37)
[2024-10-21] MEDS: PROTONIX 40 MG PO (07:37)
[2024-10-21] MEDS: THERAGRAN 1 TABLET PO (07:37)
[2024-10-21] MEDS: ZETIA 10 MG PO (07:37)
[2024-10-21] MEDS: LEXAPRO 20 MG PO (07:44)
[2024-10-21] MEDS: SINEMET 25-250 2 TABLET PO (07:44)
[2024-10-21] MEDS: HEPARIN 5000 UNITS SC (07:45)
[2024-10-21] MEDS: TOPROL XL 100 MG PO (07:45)
[2024-10-21 07:54] LABS: Glucose - Point of Care 123 mg/dl (70-99)
[2024-10-21] MEDS: NOVOLOG FLEXPEN-LOW RESISTANCE SC (07:54)
[2024-10-21 09:13] LABS: Hematocrit 43.0 % (39.0-52.0); Hemoglobin 14.3 g/dL (13.0-18.0); Mean Corp Hgb Conc. 33.3 g/dL (33.0-37.0); Mean Corpuscular Volume 89.8 fL (80.0-94.0); Nucleated Red Blood Cells % 0 % (-); Red Cell Dist. Width 14.6 % (11.5-14.5)
[2024-10-21 09:22] LABS: ALT (SGPT) < 10 U/L (0-50); AST (SGOT) 34 U/L (17-59); Albumin 4.0 g/dl (3.5-5.0); Alkaline Phosphatase 99 U/L (38-126); Blood Urea Nitrogen 18 mg/dl (9-20); Calcium 8.8 mg/dl (8.4-10.2); Carbon Dioxide 25 mmol/L (22-30); Chloride 109 mmol/L (98-107); Estimated Creatinine Clearance 82 ml/min; Glucose 158 mg/dl (70-99); Potassium 4.4 mmol/L (3.5-5.1); Sodium 141 mmol/L (135-145); Total Protein 6.5 g/dl (6.3-8.2); eGFR > 60.00
[2024-10-21 09:53] LABS: Platelet Count 94 10^3/uL (130-400)
[2024-10-21 11:00] VITALS: BP 155/83
[2024-10-21 11:48] LABS: Glucose - Point of Care 200 mg/dl (70-99)
[2024-10-21] MEDS: NOVOLOG FLEXPEN-LOW RESISTANCE 2 UNITS SC (12:32)
--- NOTE | 2024-10-21 14:19 | W.PN.HOSP.TC ---
Addendum entered and electronically signed by Nisreen Griffiths MD 10/23/24 07:01:
UTI is likely associated with self catheterization
acute hypoxemic resp failure--transient
Acute on chronic HFpEF exacerbation is correct and POA
Addendum entered and electronically signed by Nisreen Griffiths MD 10/21/24 14:48:
I saw and evaluated the patient independently. I reviewed the resident�s note and agree with findings and plan as documented by Dr. Momin.
GENERAL: well developed, well nourished, male in no apparent distress
HEENT: NC/AT
HEART: regular rate and rhythm, +S1, +S2
LUNGS : rales at bases bilaterally
ABDOM: soft, protuberant, nontender, nondistended, + bowel sounds
EXT: no cyanosis, clubbing, or edema
NEUROLOGIC: tremors of left hand c/w Parkinson's
Transient hypoxemia/Chest pain/Acute on Chronic HFpEF exacerbation--apprec cards--cont diuresis--follow weights-- ECHO with EF 60-65%--IV lasix to PO at d/c, daily weights, I/Os
Urinary tract infection/BPH--await cultures--ceftriaxone transition to Keflex at d/c, cont flomax--cont self catheterization
Type 2 diabetes--Patient was hyperglycemic on admission, likely secondary to infection--Insulin sliding scale in the hospital--restart oral meds--cont SSI
HIV--Continue Genvoya once daily
Hyperlipidemia--Continue Zetia 10 mg daily and Crestor 40 mg p.o. at bedtime
CAD--Continue aspirin 81 mg daily
Essential hypertension--Continue metoprolol succinate 100 mg p.o. daily
Anxiety--Continue Lexapro 20 mg daily
Parkinson's--Continue carbidopa levodopa 2 tabs p.o. 3 times daily
Seizure disorder--Continue pregabalin 200 mg p.o. 3 times daily
GERD--Continue esomeprazole
DVT proph--Heparin
CODE STATUS-- DNR/DNI
OK for D/C
Original Note:
Today's Communication/Plan
-
Echo normal
Medically stable for discharge with cardiac follow-up on 11/10/2024
Switch from IV ceftriaxone to cephalexin 500 mg 3 times daily for 10 days at discharge: Follow-up urine cultures once susceptibilities result to confirm this is appropriate treatment
Assessment / Plan
Assessment / Plan
69-year-old male with PMH of HIV on Genvoya, diabetes, hyperlipidemia, hypertension, anxiety, parkinsonism, seizure disorder, GERD, BPH (self catheterizes), presented to the ED on 10/19/2024 with sudden onset of chest pain and shortness of breath
that started abruptly shortly prior to arrival.� Per paramedics, he was found to be in respiratory distress with hypoxia in the 80s which improved with supplemental oxygen. In the ED, UA was remarkable for RBC, WBC, leukocyte esterase, and
nitrites. He was started on IV ceftriaxone 1000 mg. He required about 6 L NC (does not use oxygen at home/baseline) and was diuresed with symptomatic improvement in his chest pain and shortness of breath. His oxygen was able to be weaned down to
0-[address] chest 10/19/2024�showed cardiomegaly, no pericardial effusion, subsegmental atelectasis in the bilateral lung bases, no focal consolidation pleural effusion or pneumothorax, no evidence of pulmonary embolism. CXR was unremarkable for
an acute cardiopulmonary process. BNP was 200 and tropes more<0.012, 0.056, 0.041, 0.023 since admission. Echo 10/20/2024 was unremarkable as summarized below:
1. Normal left ventricular size, wall thickness and systolic function. No regional wall motion abnormalities are seen.
2. Ejection fraction is 60-65% by visual assessment.
3. No evidence of pericardial effusion.
4. Compared to prior echo from August 2023, there is no significant change.
#Transient hypoxemia, resolved
#Chest pain, resolving
#Chronic HFpEF
Most likely ISO decreased perfusion from hypotension secondary to UTI given unremarkable cardiac workup. On 10/21/2024, his symptoms had subsided and he did not require any oxygen supplementation. He was deemed stable for discharge with oral
antibiotics for his UTI as below.
-Cardiology consulted, appreciate recs
--Recommend continued medical therapy with aspirin, Toprol, Crestor, Zetia, and resuming Lasix 20 mg daily on discharge
--Outpatient cardiac follow-up is already arranged for 11/10/2024, patient aware
-Follow-up echo 10/20/2024 is unchanged from prior, with normal EF and no pertinent findings.
-Hold home Lasix 20 mg daily, s/p IV diuresis: Continue at discharge
#Urinary tract infection
#BPH
Creatinine 0.9 (baseline 0.7), UA 10/19/2024 indicative of UTI, patient self catheterizes.
-Follow-up blood cultures and urine cultures
-Continue IV ceftriaxone 1000 mg while inpatient: Discharge on Keflex 500 mg 3 times daily for 10 days
--Follow-up urine cultures once resulted and adjust therapy if needed.
-Continue tamsulosin 0.4 mg p.o. at bedtime
#Type 2 diabetes
Patient was hyperglycemic on admission, likely secondary to infection.
-Insulin sliding scale in the hospital
-Hold sitagliptin and Jardiance
-Continue to monitor POCs
#HIV
-Continue Genvoya once daily
#Hyperlipidemia
-Continue Zetia 10 mg daily and Crestor 40 mg p.o. at bedtime
#CAD
-Continue aspirin 81 mg daily
#Essential hypertension
-Continue metoprolol succinate 100 mg p.o. daily
# Anxiety
-Continue Lexapro 20 mg daily
#Parkinsonian syndrome
-Continue carbidopa levodopa 2 tabs p.o. 3 times daily
#Seizure disorder
-Continue pregabalin 200 mg p.o. 3 times daily
#GERD
-Continue esomeprazole magnesium 40 mg p.o. daily
Diet: Low-cholesterol
DVT prophylaxis: Heparin
CODE STATUS: DNR/DNI
Anticipated Discharge: Today (With cardiac follow-up on 11/10/2024 and p.o. cephalexin 500 mg 3 times daily for 10 days while urine culture is pending.)
Subjective/Interval History
-
Date of Service: October 21, 2024
-This morning, he is up and out of bed walking around well eating breakfast. He states that he feels great, and is ready to go home. He still endorses some pain with urination, however there is no hematuria anymore. He denies chest pain, nausea,
vomiting, dizziness, weakness, shortness of breath, or any other symptoms.
Objective Data
-
Labs:
Laboratory Results
10/21/24
08:26
WBC 5.0
Hgb 14.3
Hct 43.0
Plt Count 94 L
Sodium 141
Potassium 4.4
Chloride 109 H
Carbon Dioxide 25
BUN 18
Creatinine 0.8
Glucose 158 H
Calcium 8.8
Total Bilirubin 0.8
AST 34
ALT < 10
Alkaline Phosphatase 99
Vital Signs:
Vital Signs
Temp Pulse Resp BP Pulse Ox
97.3 F 75 18 155/83 94
10/21/24 11:00 10/21/24 11:00 10/21/24 11:00 10/21/24 11:00 10/21/24 11:00
I&O
10/20/24 10/21/24 10/22/24
06:59 06:59 06:59
Intake Total 480 / 480
Output Total 675 / 675
Balance -195 / -195
Review of Systems
-
History Source: Patient
All other systems: Reviewed and negative
Genitourinary: Reports Dysuria
Physical Exam
-
General: Well Developed, Well Nourished, No Apparent Distress, Conversant and Other (Walking around the room eating fruit cup)
HEENT: Normocephalic, Atraumatic and Moist Mucous Membranes
Respiratory: Clear to Auscultation and Non Labored Respirations
Cardiac: Regular Rhythm and S1/S2
GI: Soft, Nontender and Nondistended
Musculoskeletal: No Clubbing, No Cyanosis and No Edema
Skin: Warm, Dry and Rash
Neuro: AO x 3
Psych: Calm and Intact Judgement/Insight
--- NOTE | 2024-10-21 14:26 | CM ---
Patient seen at bedside with , IMM completed and signed form placed on chart. Patient to transport patient home, no needs at this time. CM will continue to follow for discharge planning needs.
Plan; home with no needs
--- NOTE | 2024-10-21 15:17 | W.DCSUMMARY ---
Addendum entered and electronically signed by Nisreen Griffiths MD 10/22/24 07:10:
Read, reviewed, and agree. See same day progress note for additional details. Time spent coordinating care, DC planning, review of DC plan of care with resident, transition of care, review of records in EMR, med rec, consults, notes, d/w
consultants, nursing, family, and CM = 33 minutes
Original Note:
Discharge Summary
Discharge Data
Date of Admission: 10/19/24
Date of Discharge: 10/21/24
-
Pending Results: No
Hospital Course
Discharging Physician : Sergio Momin MD/EDUARDO
Disposition : Home
Principal Discharge diagnosis : Urinary tract infection, transient hypoxemia
Hospital Course : He is a 69-year-old with PMH of HIV on Genvoya, type 2 diabetes, hyperlipidemia, hypertension, anxiety, parkinsonism, seizure disorder, GERD, BPH (self catheterizes), and TBI who presented to the ED on 10/19/2024 with sudden onset
of chest pain and shortness of breath that started abruptly shortly prior to arrival. He was found to be in respiratory distress with hypoxia in the 80s by paramedics, and given supplemental oxygen (6L NC) that led to improvement in his symptoms.
In the ED, UA was remarkable for RBC, WBC, leukocyte esterase, nitrates, and he was started on IV ceftriaxone [address] chest same day showed cardiomegaly, no pericardial effusion, subsegmental atelectasis in bilateral lung bases, without
focal consolidations or pleural effusions or pneumothoraces. There was no evidence of PE. CXR was unremarkable. EKG showed sinus tachycardia. BNP was 200 and tropes trended downwards over 24-hours. However, he continued to complain about chest
pressure and feeling volume overloaded, so cardiology was consulted, and he admitted to the med/surge team from 10/19/2024 to 10/21/2024. Throughout hospital course, he continued to improve significantly, was often seen walking around in his room
without shortness of breath or chest pain recurrence, and was weaned off oxygen support on 10/20/2024. Inpatient echo on 10/20/2024 was unremarkable compared to prior from 2023, and showed EF of 60 to 65% with normal left ventricular size, wall
thickness and systolic function, and without regional wall motion abnormalities. Cardiology recommended keeping his outpatient follow-up appointment for 11/10/2024 and continued medical therapy with aspirin, Toprol, Crestor, Zetia, and resuming Lasix
20 mg at discharge. He was discharged with these instructions and his IV ceftriaxone 1000 mg was changed to Keflex 500 mg (only new medication this admission) 3 times daily for a 10-day course (start dose 10/22/2024, last dose on 10/31/2024), with
possible change to antibiotics once urine cultures results. This was communicated to patient and his .
Important imaging findings :
CT chest 10/19/2024�showed cardiomegaly, no pericardial effusion, subsegmental atelectasis in the bilateral lung bases, no focal consolidation pleural effusion or pneumothorax, no evidence of pulmonary embolism.
CXR was unremarkable for an acute cardiopulmonary process.
Echo 10/20/2024 was unremarkable as summarized below:
1. Normal left ventricular size, wall thickness and systolic function. No regional wall motion abnormalities are seen.
2. Ejection fraction is 60-65% by visual assessment.
3. No evidence of pericardial effusion.
4. Compared to prior echo from August 2023, there is no significant change.
Discharge Plan
-
Patient Disposition: Home (Routine Discharge)
Discharge Diagnosis/Procedures: Urinary Tract Infection
Transient Hypoxemia
Condition: Good
Diet: Low Cholesterol and Diabetic, Carb Controlled
Activity: No restrictions
Driving Restrictions: As prior to admission
Bathing Restrictions: None
Blood Work: CBC w/ diff and CMP within a week
Specialty Instructions: Weigh Daily- Call MD for wt gain/loss 3 lbs overnight/5 lbs in 1 week
Referrals:
Oanh Askew CRNP [Family Provider, Family Practice] - in one week
Referral Note: Follow up with your PCP about this hospitalization and UTI
José Miguel Oleary MD [Active, Cardiology] - 11/10/24 3:20 pm
Referral Note: You have a cardiology follow-up appointment at the [facility] in [facility]. Please call with questions
Additional Discharge Medication Instructions: Take Cephalexin 500 mg THREE time daily starting 10/22, with your last dose on 10/31.
This is for your UTI. I will follow-up once urine cultures result if there needs to be a change in antibiotics.
Prescriptions:
New
cephalexin 500 mg capsule
500 mg PO TID Qty: 30 0RF
Rx Instructions:
Take 1 tab 3 times daily for 10 days starting 10/22. Last dose will be on 10/31.
Continued
metoprolol succinate 100 MG tablet extended release 24 hr
100 mg PO DAILY
aspirin 81 MG tablet,delayed release (DR/EC)
81 mg PO DAILY
esomeprazole magnesium [Nexium] 40 MG capsule,delayed release(DR/EC)
40 mg PO DAILY
rosuvastatin [Crestor] 40 MG tablet
40 mg PO HS
tamsulosin 0.4 MG capsule
0.4 mg PO HS
multivitamin with folic acid [Tab-A-Lyly] 1 TABLET tablet
1 tab PO DAILY
carbidopa-levodopa 25-250 mg Tablet
2 tab PO TID
furosemide [Lasix] 20 mg Tablet
20 mg PO DAILY
escitalopram oxalate [Lexapro] 20 mg Tablet
20 mg PO DAILY
ezetimibe [Zetia] 10 mg Tablet
10 mg PO DAILY
pregabalin [Lyrica] 200 mg Capsule
200 mg PO TID
Januvia 50 mg Tablet
50 mg PO QPM
potassium chloride 20 mEq Tablet Extended Release
20 meq PO QPM
Jardiance 25 mg Tablet
25 mg PO DAILY
Genvoya [id number] mg Tablet
1 tab PO DAILY
Discharge Orders:
Discharge Patient (As Directed); Ordered 10/21/24
Ordered By: Sergio Momin
Discharge Date and Time
Discharge Date/Time: 10/21/24 14:50
Print Language: BELARUSIAN
--- NOTE | 2024-10-22 12:22 | PN.CDI ---
CDI
- -
CDI:
Physician Documentation Request
Admit Date: 10/19/24 23:28
Dear Doctor Liliane,
Progress notes include a diagnosis of UTI.
Patient does self catheterization
Please clarify if a relationship exist between these conditions:
Yes, UTI is related to/associated with/due to self catheterization
No, UTI is not related to/associated with/due to self catheterization
Unable to determine
Use of terms such as suspected, likely, concern for, or probable (associated with a specific diagnosis that is being evaluated, monitored, or treated as if it exists) are acceptable and can be coded in the inpatient setting, when documented at the
time of discharge.
Thank you,
Renae Ames RN, BSN
CDI Specialist
tiger text
Please use your independent medical judgment in providing your response.
--- NOTE | 2024-10-22 12:25 | PN.CDI ---
CDI
- -
CDI:
Physician Documentation Request
Admit Date: 10/19/24 23:28
Dear Doctor Liliane,
Patient presents to ED with chest pain and shortness of breath. Per paramedics, patient found to be in respiratory distress with initial hypoxia in 80's .
Per H&P patient was placed on 6 L of oxygen.
Presenting respiratory rates documented between 16-26
Please clarify which of the following accurately represents the patient's respiratory status:
Acute respiratory failure- please indicate type
Hypoxia
Other
Additional information for Respiratory Failure:
Recognized criteria for Respiratory Failure (Source: Barbara Chao. 2018January 28.
Documentation tips: Acute Respiratory Failure, The Hospitalist.)
ABGs: (1 or more) Symptoms Please indicate type if known
1. p)2 <60 or RA SPO2 <91% on RA 1. Tachypnea, SOB, dyspnea Hypoxic
2. pCO2 >45 and pH <7.35 2. Use of accessory muscles Hypercapnic
3. pO2 decrease of pCO2 increase by 3. Pallor or cyanosis Hypoxic and Hypercapnic
10 mmHg from baseline if known 4. Anxiety or restlessness Unable to determine
4. P/F Ratio (pO2/FiO2)nless than 300 5. Unable to speak in full sentences
Use of terms such as suspected, likely, concern for, or probable (associated with a specific diagnosis that is being evaluated, monitored, or treated as if it exists) are acceptable and can be coded in the inpatient setting, when documented at the
time of discharge.
Thank you,
Renae Ames RN, BSN
CDI Specialist
tiger text
Please use your independent medical judgment in providing your response.
--- NOTE | 2024-10-22 12:30 | PN.CDI ---
CDI
- -
CDI:
Physician Documentation Request
Admit Date: 10/19/24 23:28
Dear Doctor Liliane,
Patient presented to ED with sudden onset of chest pain and shortness of breath.
H&P states pt 'gained 2-3 pounds over past few days. Over the past several months his shoe sizes increased from 9-12 due to increased lower extremity edema.'
10/20 hospitalist note states 'Transient hypoxemia/Chest pain/Acute on Chronic HFpEF exacerbation' as well as 'Chronic HFpEF'
10/20 cardiology note states 'transient chest pain and shortness of breath with hypoxia in the setting of hypotension felt to be secondary to UTI.' without mention of heart failure.
10/19 BNP 215
10/19 chest xray impression: no acute cardiopulmonary process.
In an attempt to clarify potentially conflicting documentation, please clarify the following:
____ - HFpEF was present on admission - Please clarify acuity
____ - HFpEF was ruled out
____ - Other
Use of terms such as suspected, likely, concern for, or probable (associated with a specific diagnosis that is being evaluated, monitored, or treated as if it exists) are acceptable and can be coded in the inpatient setting, when documented at the
time of discharge.
Thank you,
Renae Ames RN, BSN
CDI Specialist
tiger text
Please use your independent medical judgment in providing your response.
== END 2024-10-21 14:50 | disposition home or self-care (01) | DRG 698 ==
LOC: 3 WEST ACU 23:28
PROVIDERS: ADMITTING PHYSICIAN Hospitalist; ATTENDING PHYSICIAN Internal Medicine; CONSULT PHYSICIAN Nuclear Medicine Nuclear Cardiology; EMERGENCY PHYSICIAN Emergency Medicine; FAMILY PHYSICIAN Nurse Practitioner Family
DX: T83.518A Infection and inflammatory reaction due to other urinary catheter, initial encounter (principal); I50.33 Acute on chronic diastolic (congestive) heart failure; J96.01 Acute respiratory failure with hypoxia; N39.0 Urinary tract infection, site not specified; I11.0 Hypertensive heart disease with heart failure; N40.0 Benign prostatic hyperplasia without lower urinary tract symptoms; E11.65 Type 2 diabetes mellitus with hyperglycemia; I25.10 Atherosclerotic heart disease of native coronary artery without angina pectoris; Z79.82 Long term (current) use of aspirin; F41.9 Anxiety disorder, unspecified; G40.909 Epilepsy, unspecified, not intractable, without status epilepticus; G20.A1 Parkinson's disease without dyskinesia, without mention of fluctuations; K21.9 Gastro-esophageal reflux disease without esophagitis; Z66 Do not resuscitate; Z21 Asymptomatic human immunodeficiency virus [HIV] infection status; J44.9 Chronic obstructive pulmonary disease, unspecified; F17.290 Nicotine dependence, other tobacco product, uncomplicated; Z95.5 Presence of coronary angioplasty implant and graft; Z88.1 Allergy status to other antibiotic agents; Z88.0 Allergy status to penicillin; Z79.84 Long term (current) use of oral hypoglycemic drugs; Z79.899 Other long term (current) drug therapy; Z82.49 Family history of ischemic heart disease and other diseases of the circulatory system; E78.00 Pure hypercholesterolemia, unspecified; Z11.52 Encounter for screening for COVID-19
CPT/HCPCS: 71045; 71275; 80053; 81003; 81015; 82962; 83036; 83605; 83735; 83880; 84484; 85025; 87040; 87077; 87086; 87186; 87811; 93005; 93306; 93356; Q9967

== ENCOUNTER 2024-11-01 21:53 | Emergency (ER) | payer OTHER, SELFPAY ==
[2024-11-01 22:01] VITALS: BP 166/85
[2024-11-01 22:22] LABS: Urine Character Slightly Cloudy (Clear)
[2024-11-01 22:24] LABS: Hematocrit 41.6 % (39.0-52.0); Hemoglobin 13.8 g/dL (13.0-18.0); Mean Corp Hgb Conc. 33.2 g/dL (33.0-37.0); Mean Corpuscular Volume 89.3 fL (80.0-94.0); Nucleated Red Blood Cells % 0 % (-); Platelet Count 132 10^3/uL (130-400); Red Cell Dist. Width 14.6 % (11.5-14.5)
[2024-11-01 22:28] LABS: Urine White Cell >100 /HPF (0-5)
[2024-11-01 22:29] LABS: Urine Red Blood Cell 0-2 /HPF (0-2)
[2024-11-01 22:35] LABS: ALT (SGPT) < 10 U/L (0-50); AST (SGOT) 47 U/L (17-59); Albumin 4.1 g/dl (3.5-5.0); Alkaline Phosphatase 103 U/L (38-126); Blood Urea Nitrogen 28 mg/dl (9-20); Calcium 9.2 mg/dl (8.4-10.2); Carbon Dioxide 32 mmol/L (22-30); Chloride 106 mmol/L (98-107); Glucose 140 mg/dl (70-99); Potassium 4.0 mmol/L (3.5-5.1); Sodium 143 mmol/L (135-145); Total Protein 6.9 g/dl (6.3-8.2); eGFR > 60.00
[2024-11-02 01:12] VITALS: BMI 29.3
--- NOTE | 2024-11-02 01:16 | EDRN ---
Pt complains of L sided kidney pain that started around [id number]. Pt does not have the pain now. Pt was admitted recently with kidney infection. Pt finished keflex yesterday. No cp/sob, abd pain, n/v, fever/cough, urinary symptoms. Tt says he
self catheterizes sometimes. Pt saw primary doctor on Saturday and provided urine specimen - have not heard from office.
[2024-11-02 01:21] VITALS: BP 145/66
--- NOTE | 2024-11-02 02:39 | ED.GENMED ---
History of Present Illness
General
Chief Complaint: Flank Pain
Source: patient
Exam Limitations: none
Time Seen by Provider: 11/02/24 02:01
Nursing documentation reviewed up to this point in time: agreed with
History of Present Illness
History of Present Illness:
Note:
CHIEF COMPLAINT(S)
Pain in the left kidney.
HISTORY OF PRESENT ILLNESS
The patient is a 69-year-old male with a history of kidney stones, who presents with pain in the left kidney. Initially experienced pain the previous week and was treated with antibiotics, specifically amoxicillin-clavulanate and cephalexin, for 10
days. The pain is described as a 'shortness' type sensation, fluctuating in nature, coming and going, but has since resolved at the time of this encounter. The patient denies recent fevers. Previous imaging included a Computed Tomography (CT) scan
of the kidneys, which confirmed the presence of a kidney stone. No new imaging conducted at this visit yet, but a urine sample was provided for analysis.
EXTERNAL RECORDS REVIEWED
The patient was noted to have been in the facility the previous week for the same symptoms, and had a CT scan at that time confirming a kidney stone. Previous treatment included antibiotics: amoxicillin-clavulanate and cephalexin.
REVIEW OF SYSTEMS
- Genitourinary: Pain on the left side, specifically in the area of the kidney, previously diagnosed with a kidney stone.
PHYSICAL EXAM
General: Alert, no acute distress.
Abdomen: No flank tenderness.
PROBLEM LIST
- Acute Pain in left kidney
- History of kidney stones
PLAN
1. Review the urine sample to check for a urinary tract infection.
2. Consider ordering a new CT scan to assess the current status of the kidney stone if necessary.
3. Continue monitoring the patient, potentially starting a new antibiotic if a urinary tract infection is detected upon review of the lab results.
DIFFERENTIAL DIAGNOSIS
The Differential Diagnosis includes, in no particular order and is not limited to:
1. Renal colic
2. Kidney stones
3. Urinary tract infection
4. Pyelonephritis
5. Hydronephrosis
6. Nephrocalcinosis
7. Glomerulonephritis
8. Renal cysts
9. Renal vein thrombosis
10. Musculoskeletal pain
Disposition:
SUMMARY OF ENCOUNTER
The patient is a 69-year-old male with a history of recurrent urinary tract infections (UTIs). He was previously treated with cephalexin (Keflex) for 10 days but continues to report symptoms. Microbiology from a previous admission indicated that
cephalexin was not an effective drug for his condition. Based on the microbiology report, ciprofloxacin is determined to be the best choice for treatment. The patient, currently without pain or symptoms, requests discharge after initiating
appropriate antibiotic therapy.
DISPOSITION
Discharge
ASSESSMENT
Recurrent urinary tract infection, previously inadequately treated with cephalexin.
PLAN
1. Start ciprofloxacin for UTI as per microbiology susceptibility.
2. Discharge the patient with instructions to follow up if symptoms recur.
MEDICATION RECONCILIATION
Ciprofloxacin prescribed for the treatment of UTI.
MEDICAL DECISION MAKING
-Complexity of Data Reviewed: Chronic conditions affecting care include a history of recurrent UTIs. Differential Diagnosis: Renal colic, kidney stones, urinary tract infection, pyelonephritis, hydronephrosis, nephrocalcinosis, glomerulonephritis,
renal cysts, renal vein thrombosis, musculoskeletal pain.
-Data:
Category 1
Previous microbiology results reviewed, indicating cephalexin resistance and ciprofloxacin susceptibility.
Category 3
Discussion of management with laboratory based on microbiology reports determining ciprofloxacin as the best antibiotic choice.
-Risk:
Prescription medication was prescribed�ciprofloxacin�for UTI management.
DIAGNOSIS
- Urinary tract infection, recurrent (ICD-10: N39.0)
Past History
Past History
ED Past Medical History: CAD, COPD, GERD, HTN, Hypercholesterolemia, NIDDM, NH, Seizures and Other (HIV, Parkinson's)
ED Past Surgical History: Appendectomy, Brain (Deep brain stimulator) and Cardiac (PTCA with stent)
Social History
Tobacco: Vaping
Alcohol: None
Drug: None
Personal:
Living: with family
Employment: Retired
Family History
Family History: CAD (brother in 50s)
Phy Exam
Physical Exam
Physical Exam:
.
Course
Orders/Labs/Results
Orders:
Orders
11/01/24 22:09
Complete Blood Count/With Diff Urgent
Comprehensive Metabolic Panel Urgent
Urinalysis Reflex To Culture Urgent
Date Specimen was Collected: 11/01/24
Time Specimen was Collected: 22:04
Urine Microscopic Reflex Cult Urgent
Urine Culture Urgent
CATHERINE Source: U
Specimen Description:
Date Specimen was Collected: 11/01/24
Time Specimen was Collected: 22:04
11/02/24 02:38
Ciprofloxacin HCl [Cipro] 500 mg PO NOW STA
Abnormal Lab Results
11/01/24
22:09
RBC 4.66 L 10^6/uL
(4.70-6.10)
RDW 14.6 H %
(11.5-14.5)
MPV 10.8 H fL
(7.4-10.4)
Carbon Dioxide 32 H mmol/L
(22-30)
BUN 28 H mg/dl
(9-20)
Glucose 140 H mg/dl
(70-99)
Ur Occult Blood Reflex 1+ A
(Negative)
Leukocyte Esterase Rfl 3+ A
(Negative)
Urine WBC (Reflex) >100 A /HPF
(0-5)
Urine Bacteria (Reflex) Moderate A
(Negative)
Urine Glucose 4+ A
(Negative)
Urine Albumin (Reflex) 1+ A
(Neg - Trace)
11/01/24 22:09
11/01/24 22:09
Vital Signs
Initial and Last Documented VS:
Initial Vital Signs
Temp Pulse Resp BP Pulse Ox
97.7 F 74 18 166/85 94
11/01/24 22:01 11/01/24 22:01 11/01/24 22:01 11/01/24 22:01 11/01/24 22:01
Last Documented Vital Signs
Temp Pulse Resp BP Pulse Ox
97.7 F 65 14 145/66 95
11/01/24 22:01 11/02/24 01:21 11/02/24 01:21 11/02/24 01:21 11/02/24 01:21
*Pulse Oximetry
SaO2: 95
Oxygen Mode of Delivery: Room air
Patient hypoxic: no
*Critical Care Note
Total Time (30-74mins, 75-104mins- exclusive of procedures): Not Applicable
ED Attending Note
-
Portions of this chart may have been created with voice recognition software.� Occasional wrong word or��sound alike� substitutions may have occurred due to the inherent limitations of voice recognition software.
Discharge Plan
Departure
Patient Disposition: Home (Routine Discharge)
Date of Disposition: 11/02/24
Time of Disposition: 02:40
Patient with high blood pressure during this ER visit?: Yes
Discharge Problem:
Acute UTI
Instructions: BLOOD PRESSURE, Urinary Tract Infection - Men
Prescriptions:
New
ciprofloxacin HCl [Cipro] 500 mg tablet
500 mg PO BID Qty: 20 0RF
No Action
metoprolol succinate 100 MG tablet extended release 24 hr
100 mg PO DAILY
aspirin 81 MG tablet,delayed release (DR/EC)
81 mg PO DAILY
esomeprazole magnesium [Nexium] 40 MG capsule,delayed release(DR/EC)
40 mg PO DAILY
rosuvastatin [Crestor] 40 MG tablet
40 mg PO HS
tamsulosin 0.4 MG capsule
0.4 mg PO HS
multivitamin with folic acid [Tab-A-Lyly] 1 TABLET tablet
1 tab PO DAILY
carbidopa-levodopa 25-250 mg Tablet
2 tab PO TID
furosemide [Lasix] 20 mg Tablet
20 mg PO DAILY
escitalopram oxalate [Lexapro] 20 mg Tablet
20 mg PO DAILY
ezetimibe [Zetia] 10 mg Tablet
10 mg PO DAILY
pregabalin [Lyrica] 200 mg Capsule
200 mg PO TID
Januvia 50 mg Tablet
50 mg PO QPM
potassium chloride 20 mEq Tablet Extended Release
20 meq PO QPM
Jardiance 25 mg Tablet
25 mg PO DAILY
Genvoya [phone] mg Tablet
1 tab PO DAILY
insulin aspart U-100 [Novolog FlexPen U-100 Insulin] 100 unit/mL (3 mL) Insulin Pen
25 unit SC TIDPRN PRN (Reason: if bs low, skips dose)
Referrals:
Hans Jackson Jr., MD [Active, Urology]
Oanh Askew CRNP [Family Provider, Family Practice]
Activity Restrictions/Additional Instructions:
Please take your ciprofloxacin twice a day for 10 days. Prescription was sent to the pharmacy.
Thank You for choosing [facility].
It was a pleasure meeting you and taking part in your care. We hope for your continued healing and wellness.
Please read discharge instructions in their entirety. However, they are for general education and may not describe your exact diagnosis at discharge. Information on your ER visit and medical conditions were discussed with you along with appropriate
follow up information...
If indicated, please take your medications as instructed and indicated on discharge paperwork.
Please schedule a follow up appointment as directed. Call to schedule an appointment
Please return to the emergency department with ANY change in, persisting, or worsening of symptoms. If any of your symptoms do not improve, or persist, or become more severe within 6-12 hours, please return to the emergency department for further
care.
Please return to the emergency department if you develop a headache, neck pain/stiffness, fever greater than 100.4F, chest pain, shortness of breath, persistent nausea, vomiting, slurred speech, difficulty walking, numbness/tingling, weakness, signs
of infection or any other symptoms that are worrisome to you.
If you have any questions or concerns please do not hesitate to call the Hospital at or E-mail me directly at [email or web address]
Interventions
Interventions:
*Risk Screen - Suicide Last Done: 11/01/24 22:01
*General Assessment Last Done: 11/01/24 22:01
*Neglect/Abuse Screening Last Done: 11/01/24 22:01
*ED- Fall Risk Assessment Last Done: 11/02/24 01:12
OY-Dujzwu-Gdnmzsydsa Assessment Last Done: 11/02/24 01:22
ED-Male Genitourinary Assessment Last Done: 11/02/24 01:22
Discharge Date and Time
Print Language: MALDIVIAN
[2024-11-02] MEDS: CIPRO 500 MG PO (02:48)
== END 2024-11-02 02:54 | disposition home or self-care (01) ==
LOC: EMR 21:53
PROVIDERS: Student in an Organized Health Care Education/Training Program; EMERGENCY PHYSICIAN Student in an Organized Health Care Education/Training Program; FAMILY PHYSICIAN Nurse Practitioner Family
DX: N39.0 Urinary tract infection, site not specified (principal); E11.9 Type 2 diabetes mellitus without complications; I25.10 Atherosclerotic heart disease of native coronary artery without angina pectoris; I10 Essential (primary) hypertension; E78.00 Pure hypercholesterolemia, unspecified; I25.2 Old myocardial infarction; G20.A1 Parkinson's disease without dyskinesia, without mention of fluctuations; J44.9 Chronic obstructive pulmonary disease, unspecified; Z21 Asymptomatic human immunodeficiency virus [HIV] infection status; K21.9 Gastro-esophageal reflux disease without esophagitis; F17.290 Nicotine dependence, other tobacco product, uncomplicated; Z87.440 Personal history of urinary (tract) infections; Z79.82 Long term (current) use of aspirin; Z79.84 Long term (current) use of oral hypoglycemic drugs; Z79.4 Long term (current) use of insulin; Z95.5 Presence of coronary angioplasty implant and graft; Z82.49 Family history of ischemic heart disease and other diseases of the circulatory system
CPT/HCPCS: 99283; 80053; 81003; 81015; 85025; 87086